=== PATIENT | male | born 1980 | race Caucasian/White ===

== ENCOUNTER 2017-12-17 09:41 | Emergency (ER) | payer BC, MEDICAID ==
[~2017-12-17] VITALS: Ht 172.7 cm; Wt 95.0 kg
[2017-12-17 10:40] VITALS: BP 134/87
== END 2017-12-17 10:55 | disposition home or self-care (01) ==
LOC: ER 10:21
DX: H10.33 Unspecified acute conjunctivitis, bilateral (principal); F12.10 Cannabis abuse, uncomplicated
CPT/HCPCS: 99283